=== PATIENT | female | born 1965 | race Caucasian/White ===

== ENCOUNTER 2016-04-17 16:58 | Emergency (ER) | payer OTHER ==
[~2016-04-17] VITALS: Ht 165.1 cm; Wt 57.4 kg
[~2016-04-17 16:58] MED LIST: FLUO-1 PO; GABA300C3 PO; TRAZ100 PO
[2016-04-17 17:04] VITALS: BP 108/69; PULSE 65; RESP 15; TEMP 97.5; O2SAT 100
[2016-04-17] MEDS ORDERED: FLUO10CA5 PO (17:14)
[2016-04-17] MEDS ORDERED: GABA300C5 PO (17:14)
[2016-04-17] MEDS ORDERED: TRAZ100T4 PO (17:14)
--- NOTE | 2016-04-17 17:14 | PD ---
HPI . left shoulder pain since Thursday Chief Complaint: Musculoskeletal Complaint Time Seen by Provider: 17:14 Travel History International Travel<30 days: No Contact w/Intl Traveler<30days: No Traveled to known affect area: No History of Present Illness HPI 50-year-old female with history of bipolar disorder here with complaints of left shoulder pain since Thursday. Patient does report having shoulder pain prior to this but it has worsened since Thursday. She has been lifting heavy boxes and does so as part of her regular work load and thinks this may have contributed to her issues. She reports some pain with movement. She feels it deep within the shoulder. She tried to get an appointment with orthopedic, but they were unable to see her until the end of the month. She decided to come to the emergency department for further evaluation. Of note she has full range of motion in both of her shoulders. She has no other complaints. Naproxen has been working for her pain. PFSH Past Medical History Bipolar Disorder: Yes Anxiety: Yes Depression: Yes Cardiovascular Problems: Yes ("HEART DISEASE") Diabetes: No Diminished Hearing: No Psychiatric: Yes Pneumonia: Yes ?: Not Menopausal: Yes : 2 Para: 1 Past Surgical History Gynecologic Surgery: Yes Hysterectomy: Yes Social History Alcohol Use: Yes (OCC) Tobacco Use: Yes (1 PPD) Substance Use: Yes (RECENTLY USED HEROIN OVER PAST 2 WEEKS) Allergies-Medications (Allergen,Severity, Reaction): Coded Allergies: Penicillin (Verified Allergy, Severe, 04/17/16) Reported Meds & Prescriptions Reported Meds & Active Scripts Active Ibuprofen 800 Mg Tab 800 Mg PO TID Reported Trazodone (Trazodone HCl) 100 Mg Tab 100 Mg PO HS Gabapentin 300 Mg Cap 300 Mg PO TID Fluoxetine (Fluoxetine HCl) 10 Mg Cap 10 Mg PO DAILY Review of Systems General / Constitutional: No: Fever Eyes: No: Visual changes HENT: No: Headaches Cardiovascular: No: Chest Pain or Discomfort Respiratory: No: Shortness of Breath Gastrointestinal: No: Abdominal Pain Genitourinary: No: Dysuria Musculoskeletal: Positive: Pain (left shoulder pain) Skin: No Rash Neurologic: No: Weakness Psychiatric: No: Depression Endocrine: No: Polydipsia Hematologic/Lymphatic: No: Easy Bruising Physical Exam Narrative GENERAL: AAO x 3, no acute distress, Well-nourished, well-developed patient. SKIN: Warm and dry. No visible rashes or bruising. HEAD: Normocephalic and atraumatic. EYES: No scleral icterus. No injection or drainage. ENT: No nasal drainage noted. Mucous membranes pink. Airway patent. NECK: Supple, trachea midline. No JVD. CARDIOVASCULAR: Regular rate and rhythm without murmurs, gallops, or rubs. RESPIRATORY: Breath sounds equal bilaterally. No accessory muscle use. No rhonchi or rales. GASTROINTESTINAL: Abdomen soft, non-tender, nondistended. EXTREMITIES: No cyanosis or edema. FULL ROM B/L shoulder, strength is normal. Abduction and Adduction normal. Internal and external rotation is normal. BACK: Nontender without obvious deformity. No CVA tenderness. PSYCH: AAO x 3, normal affect. Data Data Last Documented VS [facility] Medical Decision Making Medical Screen Exam Complete: Yes Emergency Medical Condition: Yes Medical Record Reviewed: Yes Differential Diagnosis Rotator cuff injury, less likely shoulder dislocation, left likely shoulder fracture Narrative Course 50-year-old female with history of bipolar disorder here with complaints of left shoulder pain since Thursday. Patient does report having shoulder pain prior to this but it has worsened since Thursday. She has been lifting heavy boxes and does so as part of her regular work load and thinks this may have contributed to her issues. She reports some pain with movement. She feels a deep within the shoulder. She tried to get an appointment with orthopedic, but they were unable to see her until the end of the month. She decided to come to the emergency department for further evaluation. Of note she has full range of motion in both of her shoulders. She has no other complaints. Naproxen has been working for her pain. Patient seen and examined. There are no acute findings on her examination. This may be an early rotator cuff injury. I discussed this with her. I advised orthopedic follow-up. I advised her that it probably be best to start with her primary care provider for initiation of the workup. I've advised her to use NSAIDs to see if this helps with pain relief. I also advised to try to limit heavy lifting with the shoulder. I discussed with patient that imaging is not indicated. She was very understanding Patient verbalized understanding of instructions, questions were answered, and thanked me for their care. I advised them if their condition worsens, please return to the nearest emergency room for further care. Diagnosis Primary Impression: Left shoulder pain Qualified Code: M25.512 - Acute pain of left shoulder Patient Instructions: General Instructions, Shoulder Pain (ED) Additional Instructions: Please return to emergency department if your symptoms return or worsen. Follow up with your primary care provider. Take medications as prescribed. You can try topical muscle rub such as BenGay to this area, to see if it provides any relief. Med/Other Pt SpecificInfo: Prescription(s) given Scripts Ibuprofen 800 Mg [id number] Mg PO TID #30 TAB Prov:Deandre Bermudez MD 04/17/16 Disposition: 01 DISCHARGE HOME Condition: Stable Vandana Coyle Apr 17, 2016 17:14 Disposition: 01 DISCHARGE HOME Condition: Stable Vandana Coyle Apr 17, 2016 17:14
[2016-04-17] MEDS ORDERED: IBUP800T23 PO (17:24)
== END 2016-04-17 17:35 | disposition home or self-care (01) ==
LOC: PHEFT 16:58
DX: M25.512 Pain in left shoulder (principal); F17.200 Nicotine dependence, unspecified, uncomplicated; Z86.59 Personal history of other mental and behavioral disorders; Z86.79 Personal history of other diseases of the circulatory system; Z87.01 Personal history of pneumonia (recurrent)
CPT/HCPCS: 99283

== ENCOUNTER 2017-05-06 18:28 | Emergency (ER) | payer SELFPAY ==
[~2017-05-06] VITALS: Ht 165.1 cm; Wt 57.9 kg
[~2017-05-06 18:28] MED LIST changes: -FLUO-1 PO; +FLUO10CA5 PO; -GABA300C3 PO; +GABA300C5 PO; +IBUP1TAB7 PO; -TRAZ100 PO; +TRAZ100T4 PO
[2017-05-06 18:38] VITALS: BP 149/88; PULSE 81; RESP 16; TEMP 98.6; O2SAT 95
[2017-05-06] MEDS ORDERED: ACETAMINOPHEN/HYDROcodone 325 MG/5 MG TAB PO ONE (19:00)
--- NOTE | 2017-05-06 19:06 | PD ---
HPI Chief Complaint: Skin Problem Time Seen by Provider: 18:48 Travel History International Travel<30 days: No Contact w/Intl Traveler<30days: No Traveled to known affect area: No History of Present Illness HPI 51-year-old female presents to the ED for evaluation of right-sided facial pain. Per patient has had this facial pain for about 3 days now. Patient most of the pain appears to be in the cheek and she is concerned she had not have any infection. Per patient he feels like a burning. She has pain on her neck as well. No rashes. States that he goes to her ear. Does not have discomfort from the mouth or from something else. She does have pain on the back of the ear as well. Per patient the pain is 8 out of 10. She has not seen anybody for this. No injury or trauma. Allergy to penicillin. No history of this in the past. Patient has not taken anything for this. No eye pain. No fevers chills or sweats. No cough. States having some congestion and runny nose. PFSH Past Medical History Bipolar Disorder: Yes Anxiety: Yes Depression: Yes Cardiovascular Problems: Yes ("HEART DISEASE") Diabetes: No Diminished Hearing: No Psychiatric: Yes Pneumonia: Yes ?: Not Menopausal: Yes : 2 Para: 1 Past Surgical History Gynecologic Surgery: Yes Hysterectomy: Yes Social History Alcohol Use: Yes (OCC) Tobacco Use: Yes (1 PPD) Substance Use: Yes (RECENTLY USED HEROIN OVER PAST 2 WEEKS) Allergies-Medications (Allergen,Severity, Reaction): Coded Allergies: penicillin G (Unverified Allergy, Severe, 05/06/17) Reported Meds & Prescriptions Reported Meds & Active Scripts Active Hydrocodone-Acetamin 5-325 mg (Hydrocodone/Acetaminophen) 5 Mg-325 Mg Tablet 1 Tab PO Q6HR PRN Reported Prozac (Fluoxetine HCl) 20 Mg Cap 20 Mg PO DAILY Trazodone (Trazodone HCl) 150 Mg Tablet 150 Mg PO HS Gabapentin 300 Mg Cap 300 Mg PO TID Review of Systems Except as stated in HPI: all other systems reviewed are Neg Physical Exam Narrative GENERAL: SKIN: Warm and dry. HEAD: Atraumatic. Normocephalic. EYES: Pupils equal and round. No scleral icterus. No injection or drainage. ENT: No nasal bleeding or discharge. Mucous membranes pink and moist. TMs are clear with no sign of infection or perforation. Nostrils are patent bilaterally with clear mucus noted. Some sinus tenderness noted on the right maxillary area. None on the temporal area. Patient does have lymphadenopathy on the anterior aspect of the right neck. Patient does have a reducible pain on the mastoid area of the right side. Patient does have some pinkish discoloration of the right cheek compared to the left. No obvious erythema noted. Not warm to the touch. Dental: Patient has bad dentition noted throughout. Patient does have multiple cavities on multiple molar teeth. No obvious sign of gum swelling or erythema. NECK: Trachea midline. No JVD. CARDIOVASCULAR: Regular rate and rhythm. RESPIRATORY: No accessory muscle use. Clear to auscultation. Breath sounds equal bilaterally. GASTROINTESTINAL: Abdomen soft, non-tender, nondistended. Hepatic and splenic margins not palpable. MUSCULOSKELETAL: Extremities without clubbing, cyanosis, or edema. No obvious deformities. NEUROLOGICAL: Awake and alert. No obvious cranial nerve deficits. Motor grossly within normal limits. Five out of 5 muscle strength in the arms and legs. Normal speech. PSYCHIATRIC: Appropriate mood and affect; insight and judgment normal. Data Data Last Documented VS Vital Signs Date Time Temp Pulse Resp B/P (MAP) Pulse Ox O2 Delivery O2 Flow Rate FiO2 05/06/17 18:38 98.6 81 16 149/88 (108) 95 Orders Orders Acetamin-Hydrocod 325-5 Mg (Kenefic 5-325 (05/06/17 19:00) Ct Temporal Bone W/O Iv Cont (05/06/17 ) MDM Medical Decision Making Medical Screen Exam Complete: Yes Emergency Medical Condition: Yes Medical Record Reviewed: Yes Interpretation(s) CT negative Differential Diagnosis Dental infection versus abscess versus mastoiditis versus trigeminal neuralgia Narrative Course 51-year-old female that presents to the ED for evaluation of pain to the right side of the face. Patient was properly examined and was found to have signs and symptoms of unclear etiology. No obvious signs of infection although she does have biopsy and there could be potentially dental infection causing the symptoms. She does have lymphadenopathy on the right side but not on the left. Ears themselves appeared to be intact. Patient does have mastoid tenderness. We will do CT of temporal bones. CT of the temporal bones was negative for acute disease. Specifically no mastoiditis. Unclear etiology of the discomfort but this appear to be infections. I suspect that this is likely coming from the tooth. Patient was started on clindamycin to cover for bacterial infection. Patient given the diclofenac sodium and Lortab prescriptions. Patient was told to follow-up with PCP. See ED if worsening symptoms. Ice or warm compresses. Diagnosis Primary Impression: Acute facial pain Additional Impression: Dental infection Patient Instructions: General Instructions, Narcotic given in the ED Additional Instructions: Take medications as prescribed. Follow-up with PCP. See ED for any worsening symptoms. Do not drink or drive while taking pain medication. Apply ice or heat as needed for pain Med/Other Pt SpecificInfo: Prescription(s) given Scripts Hydrocodone/Acetaminophen (Hydrocodone-Acetamin 5-325 mg) 5 Mg-325 Mg Tablet 1 TAB PO Q6HR Y for PAIN SCALE 1 TO 10, #10 Prov: Yury Givens MD 05/06/17 Disposition: 01 DISCHARGE HOME Condition: Stable Jairon Montiel May 06, 2017 19:06
[2017-05-06] MEDS ORDERED: CLIN150C14 PO (19:08)
[2017-05-06] MEDS ORDERED: DICL75TA PO (19:08)
[2017-05-06] MEDS ORDERED: HYDR-3516 PO ×2 (19:08→19:12)
--- NOTE | 2017-05-06 19:29 | RADRPT ---
EXAM DATE/TIME: 05/06/2017 19:00 [facility] COMPARISON: No previous studies available for comparison. INDICATIONS : Right side facial swelling, redness, and pain. Tender mastoids. Evaluate mastoiditis. RADIATION DOSE: 67.85 CTDIvol (mGy) MEDICAL HISTORY : None SURGICAL HISTORY : None. ENCOUNTER: Initial ACUITY: 3 days PAIN SCORE: 7/10 LOCATION: Right mastoids/facial TECHNIQUE: Volumetric scanning of the temporal bone was performed. Using automated exposure control and adjustm ent of the mA and/or kV according to patient size, radiation dose was kept as low as reasonably achie vable to obtain optimal diagnostic quality images. DICOM format image data is available electronicall y for review and comparison. FINDINGS: OSSICLES: The ossicles are intact. The oval window niche is intact. MASTOID AIR CELLS: Well aerated. No sclerotic or opacified air cells are seen. The aditus is intact. MIDDLE EAR: The epitympanum and hypotympanum are intact. Prussak's space and scutum are intact. The oval and rou nd window is intact. LABYRINTH: The cochlea and semicircular canals are normal in configuration without sclerosis. INTERNAL ACOUSTIC CANAL: Normal in size without erosion. The cerebellar-pontine angle is intact. JUGULAR FOSSA: Normal in size and position. FACIAL CANAL: The tympanic, genu and descending portions are intact. EXTERNAL ACOUSTIC CANAL: The bony and cartilaginous portions are intact. OTHER: There is minimal right maxillary and ethmoid sinus disease. Small calcifications are seen in the tons ils likely with tonsillar stones. CONCLUSION: Temporal bones, middle ears, and mastoids appear normal. Zack Taylor MD on May 06, 2017 at 19:22 Board Certified Radiologist. This report was verified electronically.
[2017-05-06] MEDS ORDERED: PROZ20CA11 PO (19:32)
[2017-05-06] MEDS ORDERED: TRAZ1TAB14 PO (19:32)
== END 2017-05-06 20:30 | disposition home or self-care (01) ==
LOC: PHEFT 18:28
DX: R51 Headache (principal); K04.7 Periapical abscess without sinus; R59.1 Generalized enlarged lymph nodes; F17.200 Nicotine dependence, unspecified, uncomplicated; F31.9 Bipolar disorder, unspecified; F41.9 Anxiety disorder, unspecified; Z79.899 Other long term (current) drug therapy; Z88.0 Allergy status to penicillin
CPT/HCPCS: 70480; 99283